=== PATIENT | male | born 1940 | race Caucasian/White ===

== ENCOUNTER 2018-02-08 06:44 | Observation (INO) ==
--- NOTE | 2018-02-08 07:26 | Anesthesia Evaluation PreOp ---
Date of Encounter: 02/08/18 Time of Encounter: 07:23 - Past History Planned Operation: Pleuroscopy Cardiac History: HTN, Hyperlipidemia, Cardiac Stent (stent x 1 in 2011, last dose of plavix on 01/31/2018) Pulmonary History: SABINA Dx (uses CPAP) PERIOPERATIVE TECH History: Denies Any Significant HX Other Medical History: Diabetes Type II Anesthesia History: No Prior Anesthetic Complications, Past Anesthesia Alcohol Use: rarely Drug use: none Medications and Allergies Aspirin Enteric Coated [Aspirin EC] 81 mg PO DAILY 11/07/15 [History] Clopidogrel [Plavix] 75 mg PO DAILY 11/07/15 [History] Enalapril Maleate [Vasotec] 20 mg PO BID 11/07/15 [History] Isosorbide MONOnitrate (24 HR) [Imdur] 30 mg PO DAILY 11/07/15 [History] Nitroglycerin [Nitrostat] 0.4 mg SL Q5M PRN 11/07/15 [History] [place]-3/Dha/Epa/Fish Oil [Fish Oil Dr 500 mg Softgel] 1,000 mg PO BIDWM [History] Simvastatin [Zocor] 20 mg PO HS 11/07/15 [History] SitaGLIPtin [Januvia] 100 mg PO DAILY 11/07/15 [History] Tamsulosin [Flomax] 0.4 mg PO DAILY 11/07/15 [History] glipiZIDE [Glucotrol] 5 mg PO BIDWM 11/07/15 [History] Ergocalciferol (VITAMIN D2) [Vitamin D2] 1,000 unit PO DAILY 05/04/16 [History] Multivitamin [Multivitamins] 1 each PO DAILY 05/04/16 [History] amLODIPine [Norvasc] 10 mg PO DAILY 05/04/16 [History] Metformin HCl [Metformin HCl ER] 1,000 mg PO BID 08/10/16 [History] Carvedilol [Coreg] 25 mg PO BID 01/10/17 [History] 3 Allergy/AdvReac Type Severity Reaction Status Date / Time Penicillins Allergy Anaphylaxis Verified 01/10/17 13:18 metoprolol AdvReac Itching Verified 01/10/17 13:18 - Meds/Allergy Pre-op Review Medications Reviewed: Yes Allergies Reviewed: Yes Beta Blockers on Current Med List: Yes If Beta Blockers taken, Date/Time (Last Dose taken): 02/07/2018 at 2100 Anesthesia Results - Labs Laboratory Tests 11/08/17 11/08/17 08:02 08:02 WBC 4.9 Hgb 15.6 Hct 48.2 Plt Count 203 Sodium 142 Potassium 4.1 BUN 19 Creatinine 0.93 - Imaging EKG: report reviewed (11/07/2015 SINUS RHYTHM) Chest x-ray: report reviewed (02/03/2018 Chest X-Ray IMPRESSION: Persistent right -sided pleural effusion. Otherwise, stable chest), other (01/17/[address] IMPRESSION: Increased right-sided pleural effusion with increased right lung consolidation. Pleural implants are now seen on the right.) Additional studies: 05/04/2016 LEFT HEART CATH Indications: Shortness of breath, Fatigue Impressions: Single vessel coronary artery disease. The left ventricle is normal and has normal contractility EF 60% Stent placed from a prior procedure in the Mid LAD is patent. Recommendations: Optimal medical therapy of patient's disease. Aggressive risk factor modification. 11/08/2015 Stress Impression: Perfusion imaging was negative for ischemia or infarct. Low level exercise ECG was negative for ischemia. Hypertensive throughout testing. Gated EF = 65%. Anesthesia Exam O2 Sat Height 1.75 m Height 1.75 m Height 1.75 m Weight 111.584 kg Weight 111.584 kg Weight 111.584 kg O2 Sat by Pulse Oximetry 94 Vital Signs Temp Pulse Resp BP Pulse Ox 98.7 F 69 18 153/87 94 02/08/18 07:17 02/08/18 07:17 02/08/18 07:17 02/08/18 07:17 02/08/18 07:17 Blood Glucose* 133 Height: 5'9'' Weight: 246 lbs NPO (# of Hours): 8 Pain Scale: 0 Pain Scale Used: Numeric (1 - 10) - HEENT Pupil (Motor): EOMI Mallampati: II Teeth: Normal Oral Opening: Greater than 3 - PERIOPERATIVE TECH LOC: Oriented PERIOPERATIVE TECH Motor: Normal RUE, Normal LUE, Normal RLE, Normal LLE, Normal Face PERIOPERATIVE TECH Sensory: Normal: RUE, LUE, RLE, LLE, Face - Cardiac Rhythm: Regular Murmur: None - Pulmonary Breath Sounds: bilateral Clear (decresed BS right) Respiratory Effort: Symmetrical Anesthesia Assess/Plan ASA Score: 3 Modified C[place]lle Scale for Level of Consciousness: Cooperative, oriented, and tranquil Anesthetic Plan: MAC Monitoring Plan: Standard Monitors
--- NOTE | 2018-02-08 07:37 | History & Physical Report ---
Date of Encounter: 02/08/18 Time of Encounter: 07:25 24 Hour HP Update - Instructions Instructions: If the History and Physical is less than 30 days old and was completed prior to A.M. admission and or procedure and has NOT been updated on calendar day of procedure please complete this update prior to performing procedure. - Update Patient reports changes in Medical Condition: No Changes in examination, assessment, or condition: No Changes in Medication: Yes Preop tests/diagnostics Reviewed: Yes Surgery Remains Indicated: Yes Consent for Planned Operative Procedure(s) Verified: Yes
[2018-02-08] MEDS ORDERED: Lidocaine -MPF 2% 2 ML VIAL ONE ×2 (08:21→08:39)
[2018-02-08] MEDS ORDERED: *HR* Propofol 200 MG/20 ML VIAL IVP ONE (08:21)
[2018-02-08] MEDS ORDERED: *HR* FentaNYL (PF) 100 MCG/2 ML VIAL ONE (08:21)
--- NOTE | 2018-02-08 10:02 | Anesthesia Evaluation Post Op ---
Date of Encounter: 02/08/18 Time of Encounter: 10:01 - Vital Signs Vital Signs: Vital Signs Temperature 98.7 F 02/08/18 07:17 Pulse Rate 69 02/08/18 07:17 Respiratory Rate 18 02/08/18 07:17 Blood Pressure 153/87 02/08/18 07:17 O2 Sat by Pulse Oximetry 94 02/08/18 07:17 Temperature 98 F 02/08/18 09:58 Pulse Rate 69 02/08/18 09:58 Respiratory Rate 18 02/08/18 09:58 Blood Pressure 159/91 02/08/18 09:58 O2 Sat by Pulse Oximetry 96 02/08/18 09:58 - Lungs Lungs: Clear Ascult./Percussion (right lung diminished at baseline) - Airway Airway: Non-obstructed - Cardiovascular Regular Rate - Mental Status Mental Status: Alert & Oriented, Answers Appropriately - Pain Pain Scale: 0 Pain Scale used: Numeric (1 - 10) - Nausea Vomiting Nausea Vomiting: Not Present - Hydration Hydration: Tolerates oral liquids - Discharge PostOp Status: Transfer Patient to floor
--- NOTE | 2018-02-08 13:09 | Pulmonology Consult Note ---
<ElijahreymundoPerla Grant - Last Filed: 02/08/18 14:33> Date of Encounter: 02/08/18 Medications and Allergies Aspirin Enteric Coated [Aspirin EC] 81 mg PO DAILY 11/07/15 [History] Clopidogrel [Plavix] 75 mg PO DAILY 11/07/15 [History] Enalapril Maleate [Vasotec] 40 mg PO DAILY 11/07/15 [History] Isosorbide MONOnitrate (24 HR) [Imdur] 30 mg PO DAILY 11/07/15 [History] Nitroglycerin [Nitrostat] 0.4 mg SL Q5M PRN 11/07/15 [History] [place]-3/Dha/Epa/Fish Oil [Fish Oil Dr 500 mg Softgel] 1,000 mg PO BID 11/07/15 [ History] Simvastatin [Zocor] 10 mg PO HS 11/07/15 [History] Tamsulosin [Flomax] 0.4 mg PO DAILY 11/07/15 [History] glipiZIDE [Glucotrol] 5 mg PO BIDWM 11/07/15 [History] Multivitamin [Multivitamins] 1 each PO DAILY 05/04/16 [History] Metformin HCl [Metformin HCl ER] 1,000 mg PO BID 08/10/16 [History] Carvedilol [Coreg] 25 mg PO BID 01/10/17 [History] Cholecalciferol (Vitamin D3) [Vitamin D3] 5,000 unit PO DAILY 02/08/18 [History] 3 Allergy/AdvReac Type Severity Reaction Status Date / Time Penicillins Allergy Anaphylaxis Verified 01/10/17 13:18 metoprolol AdvReac Itching Verified 01/10/17 13:18 All Systems: The remainder of the systems were reviewed and are negative Physical Examination Vital Signs: Vital Signs, Last 4 Hours Temp Pulse Resp BP Pulse Ox 02/08/18 12:24 98.2 F 82 16 156/78 94 02/08/18 10:58 98 F 74 16 155/81 94 Results - Laboratory Findings Abnormal lab findings: Abnormal lab results POC Glucose 133 mg/dL (70-99) H 02/08/18 07:15 - Clinical Findings Intake & Output: Intake & Output 02/07/18 02/08/18 02/08/18 23:59 07:59 15:59 Intake Total 600 / 600 Output Total 160 / 160 Balance 440 / 440 Weight 111.584 kg Consult Discharge Plan - Plan Referrals: Zain Barros MD [Primary Care Provider] - - Attending Attestation I examined this patient and my medical decision-making was reviewed with the Resident Physician. I agree with the documented findings, disposition and treatment plan as described except to the extent set forth below. Patient seen and examined. Labs, radiology, chart personally reviewed. Agree with resident's history and physical, assessment, plan with following comments: DIRECTOR OF FOOD AND BEVERAGE SERVICES: Patient follows commands, Pulmonary: Acceptable oxygenation and ventilation. Patient had pleuroscopy today for recurrent pleural effusion. The patient has abnormal PET scan as outpatient and previously his PET scan was normal. This is highly suspicious for malignancy and suspect mesothelioma. Patient will be and observation and will follow-up on the biopsy result and will consider oncology consultation. Most likely patient will be discharged home tomorrow. I have discussed this with the family and the patient. Cardiovascular: stable <Emile Davis - Last Filed: 02/08/18 15:43> Date of Encounter: 02/08/18 Time of Encounter: 14:00 Assessment and Plan (1) Pleural effusion Current Visit: Yes Status: Acute -Patient has a history of recurrent pleural effusion. his last admission was on January 24 for pleural effusion and underwent thoracentesis. - -Patient had a pleuroscopy procedure this morning for his recurrent pleural effusion. He tolerated the procedure very well. Findings are suspicious for malignancy and mesothelioma. -Patient currently onsuction, will transition to water seal and get a CXR. -Continue to monitor. (2) SABINA (obstructive sleep apnea) Current Visit: Yes Status: Acute -Patient has a history of obstructive sleep apnea. Patient recently underwent for overnight titration polysomnography, and the recommendations of the study was CPAP, - continue to monitor History of Present Illness Consult date: 02/08/18 Chief complaint: recurrent pleural effusion History of present illness: Demetria is a 77-year-old male with a past medical history of recurrent pleural effusion, hypertension, diabetes, acute coronary syndrome, hyperlipidemia and obesity who was seen by pulmonology for pleuroscopy procedure. He was recently in the hospital on January 24 for right-sided pleural effusion and underwent thoracentesis. This morning he underwent pleuroscopy procedure and the findings were highly suspicious for malignancy and suspect mesothelioma. Past Med Surg Social Fam HX - Past Medical History Medical history: cancer, coronary artery disease, dementia, diabetes, hyperlipidemia, hypertension, kidney stones, myocardial infarction, other Additional medical history: BPH, dyslipedemia, skin ca, hypokalemia, kidney stones Psychiatric history: no psych history - Past Surgical History Surgical History: angioplasty/stent, cancer surgery, cholecystectomy Additional surgical history: skin cancer, Mohs procedure, thoracentesis, heart stent, thorancetisis. pleurx cath - Social History Smoking Status: Never smoker Smokeless Tobacco Status: No Alcohol use: rarely Drug use: none - Family History Mother Living Status: Hx Family Cardiac Disorders: Yes Hx Family Endocrine Disorder: Yes All Systems: The remainder of the systems were reviewed and are negative Physical Examination Vital Signs: Vital Signs, Last 4 Hours Temp Pulse Resp BP Pulse Ox 02/08/18 12:24 98.2 F 82 16 156/78 94 02/08/18 10:58 98 F 74 16 155/81 94 02/08/18 10:28 97.5 F L 69 18 152/85 94 02/08/18 09:58 98 F 69 18 159/91 96 02/08/18 09:43 98.3 F 67 18 144/87 95 02/08/18 09:28 98 F 67 16 135/82 94 General appearance: no acute distress, asleep Auscultation: bilateral: clear Cardiovascular: regular rate and rhythm Extremities: no cyanosis, no edema, no clubbing Results - Clinical Findings Intake & Output: Intake & Output 02/07/18 02/08/18 02/08/18 23:59 07:59 15:59 Weight 111.584 kg
[2018-02-08] MEDS ORDERED: Naloxone 0.4 MG/ML INJ IVP PRN (13:11)
[2018-02-08] MEDS ORDERED: *HR* HYDROcodone/Acet 5/325 mg TABLET PO PRN (13:11)
[2018-02-08] MEDS ORDERED: Acetaminophen 325 MG TABLET PO PRN (13:11)
[2018-02-08] MEDS ORDERED: Nitroglycerin 0.4 MG TAB.SUBL SL PRN (13:15)
[2018-02-08] MEDS ORDERED: Dextrose Gel 15 GM/37.5 ML TUBE PO PRN ×2 (13:19)
[2018-02-08] MEDS ORDERED: *HR* Dextrose 50 % in Water (Syg) 50 ML SYRINGE IVP PRN (13:19)
[2018-02-08] MEDS ORDERED: D5% in Water 1,000 ML IVC PRN (13:19)
--- NOTE | 2018-02-08 15:06 | Internal Med History&Physical ---
Date of Encounter: 02/08/18 Time of Encounter: 12:00 Internal Medicine - H&P: HPI Chief complaint: Pleuroscopy for recurrent pleural effusion Admitted From: Intrahospital Transfer Plans for Post Hospital Care: Home History of present illness: Mr. Escoto is a 77 year old male past medical history of coronary disease with stent placement dementia and diabetes hyperlipidemia hypertension. Patient has a history of recurrent pleural effusions. According to patient and family he has had thoracentesis in the past as well as Pleurx catheters however the pleural effusions have returned. 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 Patient underwent fluoroscopy today with chest tube placed-which is currently on suction. Currently he does not appear to be in any respiratory distress he denies any chest pain. There does not appear to be any crepitus around chest tube insertion site. Chest x-ray completed postprocedure which did show improvement right-sided chest tube right pleural effusion will be admitted for observation Past Med Surg Social Fam HX - Past Medical History Medical history: cancer, coronary artery disease, dementia, diabetes, hyperlipidemia, hypertension, kidney stones, myocardial infarction, other Additional medical history: BPH, dyslipedemia, skin ca, hypokalemia, kidney stones Psychiatric history: no psych history - Past Surgical History Surgical History: angioplasty/stent, cancer surgery, cholecystectomy Additional surgical history: skin cancer, Mohs procedure, thoracentesis, heart stent, thorancetisis. pleurx cath - Social History Smoking Status: Never smoker Smokeless Tobacco Status: No Alcohol use: rarely Drug use: none - Family History Mother Living Status: Hx Family Cardiac Disorders: Yes Hx Family Endocrine Disorder: Yes Internal Medicine - H&P: Meds Aspirin Enteric Coated [Aspirin EC] 81 mg PO DAILY 11/07/15 [History] Clopidogrel [Plavix] 75 mg PO DAILY 11/07/15 [History] Enalapril Maleate [Vasotec] 40 mg PO DAILY 11/07/15 [History] Isosorbide MONOnitrate (24 HR) [Imdur] 30 mg PO DAILY 11/07/15 [History] Nitroglycerin [Nitrostat] 0.4 mg SL Q5M PRN 11/07/15 [History] [place]-3/Dha/Epa/Fish Oil [Fish Oil Dr 500 mg Softgel] 1,000 mg PO BID 11/07/15 [ History] Simvastatin [Zocor] 10 mg PO HS 11/07/15 [History] Tamsulosin [Flomax] 0.4 mg PO DAILY 11/07/15 [History] glipiZIDE [Glucotrol] 5 mg PO BIDWM 11/07/15 [History] Multivitamin [Multivitamins] 1 each PO DAILY 05/04/16 [History] Metformin HCl [Metformin HCl ER] 1,000 mg PO BID 08/10/16 [History] Carvedilol [Coreg] 25 mg PO BID 01/10/17 [History] Cholecalciferol (Vitamin D3) [Vitamin D3] 5,000 unit PO DAILY 02/08/18 [History] 3 Allergy/AdvReac Type Severity Reaction Status Date / Time Penicillins Allergy Anaphylaxis Verified 01/10/17 13:18 metoprolol AdvReac Itching Verified 01/10/17 13:18 All Systems PM: A 10-system review of systems was performed and is negative for pertinent findings except as documented above in the HPI. - Constitutional Constitutional: no chills, no fever(s), no night sweats - EENT Eyes: no change in vision, no discharge, no pain, no photophobia Ears: no ear discharge, no ear pain, no tinnitus Nose, mouth and throat: no dysphagia, no nasal discharge, no neck pain, no sore throat - Cardiovascular Cardiovascular ROS IM: no chest pain, no diaphoresis, no dyspnea, no lightheadedness, no palpitations, no syncope - Respiratory Respiratory: dyspnea - Gastrointestinal Gastrointestinal: no abdominal pain, no diarrhea, no hematemesis, no hematochezia, no melena, no nausea, no vomiting - Musculoskeletal Musculoskeletal ROS IM: no numbness, no tingling - Integumentary Integumentary IM: no rash, no unusual bruising - Neurological Neurological ROS: no confusion, no convulsions, no focal weakness, no numbness, no tingling, no tremor(s) - Hematologic/Lymphatic Hematologic/Lymphatic: no easy bruising - Constitutional Vitals: Temp Pulse Resp BP Pulse Ox 98.2 F 82 16 156/78 94 02/08/18 12:24 02/08/18 12:24 02/08/18 12:24 02/08/18 12:24 02/08/18 12:24 General appearance: Present: A&O X 3 Exam: see below - Head Head exam: Present: atraumatic, normocephalic - Eye Eye exam: Present: PERRL, conjuntiva pink, sclera anicteric Pupils: Present: PERRL - Neck Neck exam general surgery: Present: supple, trachea midline. Absent: lymphadenopathy - Respiratory Respiratory exam: Present: decreased breath sounds, CTAB. Absent: accessory muscle use, rales, rhonchi, wheezes Additional comments: Decreased breath sounds to right lower lobe - Cardiovascular Cardiovascular exam: Present: RRR, +S1, +S2. Absent: diastolic murmur, gallop, rubs, systolic murmur - GI/Abdominal GI/Abdominal exam: Present: normal bowel sounds, soft, no peritoneal signs. Absent: distended, tenderness - Extremities Exam Extremities exam: Present: warm, radial pulses palpable and symmetrical. Absent : calf tenderness, cyanotic, pedal edema - Neurological Exam Neurological exam: Present: CN II-XII intact, oriented X3, no focal deficits. Absent: pronater drift, facial droop, speech deficit - Skin Skin exam: Present: dry, intact Internal Med - H&P Results - Impressions ITS Impressions Chest X-Ray 02/08/18 09:42 IMPRESSION: 1. Interval placement of right-sided chest tube, with interval improvement in right pleural effusion and right lung base pulmonary opacities. There is residual round masslike density within right lower lobe measuring 37 x 31 mm. Continued attention on follow-up examination is recommended to exclude neoplasm. 2. New left lower lobe pulmonary opacity may represent combination of atelectasis, pneumonia, and/or aspiration. Recommend radiographic follow-up to complete resolution. 3. No convincing evidence of pneumothorax. D/ / Lang Tucker MD / Lang Tucker MD Interpreting Provider: Lang Tucker MD - Diagnostic Studies Other Images Additional comments: Chest X-Ray 02/08/18 09:42 IMPRESSION: 1. Interval placement of right-sided chest tube, with interval improvement in right pleural effusion and right lung base pulmonary opacities. There is residual round masslike density within right lower lobe measuring 37 x 31 mm. Continued attention on follow-up examination is recommended to exclude neoplasm. 2. New left lower lobe pulmonary opacity may represent combination of atelectasis, pneumonia, and/or aspiration. Recommend radiographic follow-up to complete resolution. 3. No convincing evidence of pneumothorax. D/ / Lang Tucker MD / Lang Tucker MD Interpreting Provider: Lang Tucker MD - Assessment and plan (1) Pleural effusion Current Visit: Yes Status: Acute Assessment and plan: -Patient has a history of recurrent pleural effusion he had a recent PET scan which was concerning for malignancy pulmonology suggesting pleuroscopy. Patient underwent colonoscopy today per Dr. Velasquez findings are suspicious for malignancy and mesothelioma -He does have a right chest tube is currently suction managed per pulmonary services -Post procedure chest x-ray does show improvement in right pleural effusion and right lung base pulmonary opacities. It also reveals a new left lower lobe pulmonary pace and he may represent combination of atelectasis pneumonia and/or aspiration follow-up with chest x-ray. We will hold off on antibiotics at this time patient is afebrile sats are stable no Leukocytosis continue to monitor closely (2) SABINA (obstructive sleep apnea) Current Visit: Yes Status: Acute Assessment and plan: -Vision has a history of obstructive sleep apnea We will continue with CPAP (3) Coronary artery disease Current Visit: No Status: Chronic Assessment and plan: Patient does have a history of coronary artery disease with stent placement mid LAD in 2013-he did undergo a cardiac catheterization and May 2016 with a patent stent. Single-vessel coronary disease Continue with aspirin and Plavix beta kimber statin Continuous cardiac monitoring Nitroglycerin as needed Qualifiers: Coronary Disease-Associated Artery/Lesion type: [place] artery [place] vs. transplanted heart: [place] heart Associated angina: with stable angina Qualified Code(s): I25.119 - Atherosclerotic heart disease of [place] coronary artery with unspecified angina pectoris (4) Diabetes Current Visit: No Status: Chronic Assessment and plan: Last hemoglobin A1c 6.4 on 11/08/2017-we will hold oral medications for now. Accu-Cheks before meals at bedtime with sliding scale insulin Diabetic diet Qualifiers: Diabetes mellitus type: type 2 Diabetes mellitus jail insulin use: unspecified cpas insulin use status Diabetes mellitus complication status : with unspecified complications Qualified Code(s): E11.8 - Type 2 diabetes mellitus with unspecified complications (5) HTN (hypertension) Current Visit: No Status: Chronic Assessment and plan: Patient did not take medication today we will resume home medicines Qualifiers: Hypertension type: essential hypertension Qualified Code(s): I10 - Essential (primary) hypertension (6) DVT prophylaxis Current Visit: Yes Status: Acute Assessment and plan: SCDs - Time Spent With Patient Total time spent is greater than 50% in coordination of care (as documented) at patient's floor/unit and/or counseling patient:
[2018-02-08] MEDS: Insulin LISPRO 300 UNITS/3 ML VIAL SQ SCH (16:46)
[2018-02-08] MEDS ORDERED: Aspirin Enteric Coated 81 MG Tablet PO SCH (17:00)
[2018-02-08] MEDS ORDERED: Multivit/Ca/Min/Fe/FA 1 TAB TABLET PO SCH (17:00)
[2018-02-08] MEDS ORDERED: NON-FORMULARY MEDICATION 1 EACH EACH (Omega-3/Dha/Epa/Fish Oil [Fish Oil Dr 500 Mg Softgel PO SCH (21:00)
[2018-02-08] MEDS ORDERED: Insulin LISPRO 300 UNITS/3 ML VIAL SQ SCH (21:00)
[2018-02-08] MEDS ORDERED: Cholecalciferol (D-3) 1,000 UNIT TABLET PO SCH (21:00)
[2018-02-08] MEDS ORDERED: Isosorbide MONOnitrate (24 HR) 30 MG TAB.ER.24H PO SCH (21:00)
[2018-02-08] MEDS ORDERED: Lisinopril 20 MG TABLET PO SCH (21:00)
[2018-02-09 03:38] LABS: Basophils # 0.1 K/mcL (0.0-0.2); Basophils % 0.7 %; Eosinophils # 0.1 K/mcL (0.0-0.6); Eosinophils % 1.6 %; Hematocrit 45.6 % (37.5-50.1); Immature Granulocytes % 0.3 % (0-4); Lymphocytes # 1.4 K/mcL (0.6-4.6); Mean Corpuscular HGB Conc 32.9 g/dL (31.6-35.5); Mean Corpuscular Hemoglobin 28.8 pg (28.0-33.3); Mean Corpuscular Volume 87.5 fL (83.0-100.0); Mean Platelet Volume 9.8 fL (9.4-12.4); Monocytes # 0.6 K/mcL (0.0-1.3); Monocytes % 8.8 %; Neutrophils # 4.8 K/mcL (1.6-8.9); Platelet Count 193 K/mcL (140-400); Red Blood Count 5.21 M/mcL (4.19-5.50); Red Cell Distribution Width 13.7 % (11.5-14.5); Segmented Neutrophils % 68.6 %
[2018-02-09 04:01] LABS: BUN/Creatinine Ratio 16 (6-26); Blood Urea Nitrogen 12 mg/dL (8-23); Calcium 9.1 mg/dL (8.6-10.3); Carbon Dioxide 24 mEq/L (23-29); Chloride 104 mEq/L (98-107); Glucose 145 mg/dL (70-105); Osmolality,Calculated 288 (280-300); Potassium 4.1 mEq/L (3.5-5.1); Sodium 138 mEq/L (136-145); eGFR For Non-African Americans > 60 (> 60)
[2018-02-09 07:18] VITALS: BP 132/82
[2018-02-09] MEDS: Insulin LISPRO 300 UNITS/3 ML VIAL SQ SCH (08:38)
--- NOTE | 2018-02-09 09:23 | Discharge Summary ---
- NOTES TO OUTPATIENT PROVIDER Notes to Outpatient Provider: follow up with pulmonology clinic. follow up biopsy results from pleuroscopy Orders not resulted at time of discharge: Pending orders 02/08/18 10:01 Cytology [PTH] Routine Surgical Pathology [PTH] Routine Date of Encounter: 02/09/18 Time of Encounter: 09:21 - Discharge Diagnosis (1) Pleural effusion Priority: Primary Status: Acute (2) HTN (hypertension) Priority: Secondary Status: Chronic Qualifiers: Hypertension type: essential hypertension Qualified Code(s): I10 - Essential (primary) hypertension (3) Diabetes Priority: Secondary Status: Chronic Qualifiers: Diabetes mellitus type: type 2 Diabetes mellitus roasterman insulin use: unspecified roasterman insulin use status Diabetes mellitus complication status : with unspecified complications Qualified Code(s): E11.8 - Type 2 diabetes mellitus with unspecified complications (4) Coronary artery disease Priority: Secondary Status: Chronic Qualifiers: Coronary Disease-Associated Artery/Lesion type: [place] artery [place] vs. transplanted heart: [place] heart Associated angina: with stable angina Qualified Code(s): I25.119 - Atherosclerotic heart disease of [place] coronary artery with unspecified angina pectoris (5) SABINA (obstructive sleep apnea) Priority: Secondary Status: Acute (6) DVT prophylaxis Priority: Secondary Status: Acute (7) Obesity (BMI 35.0-39.9 without comorbidity) Priority: Secondary Status: Acute Hospital course: Mr. Escoto is a 77 year old male with medical history of coronary disease with stent placement dementia and diabetes hyperlipidemia hypertension. Patient has a history of recurrent pleural effusions. According to patient and family he has had thoracentesis in the past as well as Pleurx catheters however the pleural effusions have returned. 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 He was seen by his patient registration specialist who recommended pleuroscopy. Patient underwent fluoroscopy on 02/08 and tolerated the procedure well. on 02/09 he was reevaluated by the pulmonology team it was recommended that he is stable for discharge and for follow up with Dr. Velasquez as OP. he understands that he will need close follow up with pulmonology team in regards to the biopsy reports. pulmonology will consider oncology consultation based on biopsy results as OP. was told to provide appointments with pulmonology and PCP prior to discharge CXR 02/09- IMPRESSION: 1. Right chest tube in stable position. No discrete pneumothorax identified. 2. Improved aeration of the bilateral bases with minimal persistent atelectasis and trace effusions. - Time Spent with Patient Total time spent providing and/or coordinating discharge services: Less than 30 minutes - Discharge Medications Home Medications: Aspirin Enteric Coated [Aspirin EC] 81 mg PO 169911/07/15 [History] Clopidogrel [Plavix] 75 mg PO 169911/07/15 [History] Enalapril Maleate [Vasotec] 40 mg PO 209911/07/15 [History] Isosorbide MONOnitrate (24 HR) [Imdur] 30 mg PO 209911/07/15 [History] Nitroglycerin [Nitrostat] 0.4 mg SL Q5M PRN 11/07/15 [History] Simvastatin [Zocor] 10 mg PO 209911/07/15 [History] glipiZIDE [Glucotrol] 5 mg PO 0800,1700 11/07/15 [History] Multivitamin [Multivitamins] 1 cap PO 169905/04/16 [History] Metformin HCl [Metformin HCl ER] 1,000 mg PO 0900,209908/10/16 [History] Carvedilol [Coreg] 25 mg PO 0900,209901/10/17 [History] Cholecalciferol (D-3) [Vitamin D] 5,000 unit PO 209902/09/18 [History] [place]-3/Dha/Epa/Fish Oil [Fish Oil 1,000 mg Softgel] 1 cap PO 0900,2099 [History] Tamsulosin [Flomax] 0.4 mg PO 169902/09/18 [History] Allergies/Adverse Reactions: 3 Allergy/AdvReac Type Severity Reaction Status Date / Time Penicillins Allergy Anaphylaxis Verified 02/09/18 08:37 metoprolol AdvReac Itching Verified 02/09/18 08:37 Date of admission: 02/08/18 11:48 Primary care physician: Zain Barros MD Consults: 02/08/18 14:03 Consult to Pulmonology [CONS] Routine Consulting Provider: [facility] [place] Reason for Consult: s/p pleuroscopy and pleurX catheter insertion Call Completed: Yes - Constitutional Vitals: Temp Pulse Resp BP Pulse Ox 98.1 F 72 18 132/82 95 02/09/18 07:17 02/09/18 07:17 02/09/18 07:17 02/09/18 07:17 02/09/18 08:20 General appearance: Present: A&O X 3 Exam: General: Patient is alert, oriented, no acute distress, obese Head: atraumatic, normocephalic, Eye: normal appearance, PERRL, no scleral icterus, no conjunctival injection ENT: mucous membranes moist, normal external ear exam Neck: normal inspection, trachea midline, full ROM, no carotid bruits Chest: normal inspection, symmetric chest rise Respiratory: Good respiratory effort. Bilateral breath sounds are decreased secondary to body habitus, chest tube in the right posterior lung field. Has crackles in the right posterior lung field Cardiovascular: Distant heart sounds secondary to body habitus, Regular rate and rhythm. s1 and s2 No clicks, rubs, gallops, or murmors. Abdomen: Bowel sounds present normoactive x-4 quadrants. Abdomen is soft, nondistended. no Epigastric tenderness. No guarding or rebound. No organomegaly noted, obese musculoskeletal: Spontaneously moving all extremities. no edema, no calf tenderness Skin: warm, dry, intact. Neuro: Alert and oriented x4. Sensation light touch intact. Cranial nerves 2- 12 is intact. Not aphasic, rapid hand movements intact, [id number] intact, Psych: Patient's affect is normal - Patient Status Disposition: Home, Self-Care Condition: Fair Functional capacity at discharge: independent ambulation Overall status at discharge: patient is progressing back to baseline - Discharge Instructions Follow Up With: Zain Barros MD [Primary Care Provider] - - Diet and Activity Activity: increase activity as tolerated Diet: advance to your usual diet
--- NOTE | 2018-02-09 12:34 | Pulmonology Progress Note ---
<Perla Crowder - Last Filed: 02/09/18 13:28> Date of Encounter: 02/09/18 Objective PUL Vital signs: Last Vital Signs Temp 98.1 F 02/09/18 07:17 Pulse 72 02/09/18 07:17 Resp 18 02/09/18 07:17 BP 132/82 02/09/18 07:17 Pulse Ox 95 02/09/18 08:20 Results - Laboratory Findings CBC and BMP: 02/09/18 03:16 02/09/18 03:16 Abnormal lab findings: Abnormal lab results Glucose 145 mg/dL (70-105) H 02/09/18 03:16 POC Glucose 102 mg/dL (70-99) H 02/08/18 22:01 - Clinical Findings Intake & Output: Intake & Output 02/08/18 02/09/18 02/09/18 23:59 07:59 15:59 Intake Total 360 / 360 Output Total 580 / 580 250 / 250 Balance -580 / -580 -250 / -250 360 / 360 Weight 110.2 kg Consult Discharge Plan - Plan Instructions: Chest Tubes (DC) Referrals: Perla Crowder MD [Partnered Physician] - 02/10/18 8:00 am (Please follow up as schedule....) Zain Barros MD [Primary Care Provider] - 02/16/18 2:15 pm (Please follow up as schedule...) - Attending Attestation I examined this patient and my medical decision-making was reviewed with the Resident Physician. I agree with the documented findings, disposition and treatment plan as described except to the extent set forth below. Patient seen and examined. Labs, radiology, chart personally reviewed. Agree with resident's history and physical, assessment, plan with following comments: [employer]: Patient follows commands, Pulmonary: Acceptable oxygenation and ventilation. Patient is breathing better and reviewed this x-ray with improvement and change dressing with patient to follow-up as outpatient in 7-10 days. Resume his aspirin and Plavix. <Emile Davis - Last Filed: 02/09/18 14:22> Date of Encounter: 02/09/18 Time of Encounter: 11:00 Assessment and Plan (1) Pleural effusion Status: Acute - Patient was admitted yesterday for recurrent pleural effusion, underwent pleuroscopy ,had left chest tube placed, with bare minimal drainage overnight. Patient's repeat x-ray looks pretty unremarkable with no evidence of pneumothorax. He is stable to be discharged from the hospital and has been recommended to follow-up with pulmonology as an outpatient in 7-10 days, in order to discuss the surgical biopsy and pleural cytology results. Patient has also been advised to resume his aspirin and Plavix. (2) SABINA (obstructive sleep apnea) Status: Acute -Patient has a history of obstructive sleep apnea. Patient recently underwent for overnight titration polysomnography, and the recommendations of the study was CPAP, -Continue to follow-up with pulmonology for further management of his SABINA. Subjective Principal diagnosis: pleural effusion Interval history: No acute events overnight. Patient's a right chest tube is in stable position with no evidence of discrete pneumothorax on the chest x-ray. He is hemodynamically stable to be discharged and follow-up with pulmonology as an outpatient in 7-10 days. Patient's surgical specimen and pleural cytological studies are pending. Objective PUL Vital signs: Last Vital Signs Temp 98.1 F 02/09/18 07:17 Pulse 72 02/09/18 07:17 Resp 18 02/09/18 07:17 BP 132/82 02/09/18 07:17 Pulse Ox 95 02/09/18 08:20 General appearance: no acute distress Effort: normal Auscultation: bilateral: clear Cardiovascular: regular rate and rhythm Gastrointestinal: soft, non-tender, non-distended Extremities: no cyanosis, no edema, no clubbing Results - Laboratory Findings CBC and BMP: 02/09/18 03:16 02/09/18 03:16 Abnormal lab findings: Abnormal lab results Glucose 145 mg/dL (70-105) H 02/09/18 03:16 POC Glucose 102 mg/dL (70-99) H 02/08/18 22:01 - Clinical Findings Intake & Output: Intake & Output 02/08/18 02/09/18 02/09/18 23:59 07:59 15:59 Intake Total 360 / 360 Output Total 580 / 580 250 / 250 Balance -580 / -580 -250 / -250 360 / 360 Weight 110.2 kg
== END 2018-02-09 11:23 | disposition home or self-care (01) ==
LOC: SAMDAY 06:44 → 2ANU 11:48 → INTOOBSV 11:48
PROVIDERS: ADMIT Internal Medicine; ATTEND Internal Medicine

== ENCOUNTER 2020-10-17 14:21 | Observation (INO) ==
[2020-10-17] MEDS ORDERED: Isovue-370 500 ML BOTTLE IVP ONE (14:39)
[2020-10-17 15:21] LABS: Basophils % 0.7 %
[2020-10-17 15:23] LABS: Eosinophils # 0.1 K/mcL (0.0-0.6); Eosinophils % 1.5 %; Hematocrit 42.7 % (37.5-50.1); Hemoglobin 13.9 g/dL (12.9-16.9); Immature Granulocytes % 0.5 % (0-4); Immature Platelets 3.9 % (1.1-6.1); Lymphocytes # 0.3 K/mcL (0.6-4.6); Lymphocytes % 4.6 %; Mean Corpuscular HGB Conc 32.6 g/dL (31.6-35.5); Mean Corpuscular Hemoglobin 29.3 pg (28.0-33.3); Mean Corpuscular Volume 90.1 fL (83.0-100.0); Monocytes # 0.8 K/mcL (0.0-1.3); Monocytes % 12.7 %; Neutrophils # 4.7 K/mcL (1.6-8.9); Platelet Count 133 K/mcL (140-400); Red Blood Count 4.74 M/mcL (4.19-5.50); Red Cell Distribution Width 13.4 % (11.5-14.5); White Blood Count 5.9 K/mcL (4.3-11.1)
[2020-10-17 15:26] LABS: Platelet Estimate Slight Decrease (Normal)
[2020-10-17 15:41] LABS: BUN/Creatinine Ratio 26 (6-26); Blood Urea Nitrogen 31 mg/dL (8-23); Calcium 9.2 mg/dL (8.6-10.3); Carbon Dioxide 28 mEq/L (23-29); Chloride 91 mEq/L (98-107); Glucose 148 mg/dL (70-105); Osmolality,Calculated 279 (280-300); Potassium 3.1 mEq/L (3.5-5.1); Sodium 130 mEq/L (136-145); eGFR For African Americans > 60 (> 60); eGFR For Non-African Americans 59 (> 60)
[2020-10-17 15:58] LABS: Troponin I 0.05 ng/mL (< 0.04)
[2020-10-17] MEDS ORDERED: Cefepime HCl 2,000 MG in D5% in Water (Mini-Bag+) 100 ML IVPB STA (18:21)
[2020-10-17] MEDS ORDERED: Naloxone 0.4 MG/ML INJ IVP PRN (20:53)
[2020-10-17] MEDS ORDERED: *HR* Dextrose 50 % in Water (Vial) 50 ML VIAL IVP PRN (20:53)
[2020-10-17] MEDS ORDERED: D5% in Water 1,000 ML IVC PRN (20:53)
[2020-10-17] MEDS ORDERED: Dextrose Gel 15 GM/37.5 ML TUBE PO PRN ×2 (20:53)
[2020-10-17] MEDS ORDERED: Potassium Chloride Elixir 20 MEQ/15 ML UDC PO ONE (22:44)
[2020-10-18 01:21] LABS: Bilirubin,Urine Negative (Negative); Blood,Urine Negative (Negative); Clarity,Urine Clear (Clear); Color,Urine Light-Yellow (Yellow); Glucose,Urine (UA) Normal (Normal); Ketones,Urine Negative (Negative); Leukocyte Esterase,Urine Negative (Negative); Nitrite,Urine Negative (Negative); Protein,Urine Trace mg/dL (Neg-Trace); Specific Gravity,Urine 1.024 (1.010-1.025); Urobilinogen,Urine Normal (Normal)
[2020-10-18 03:19] LABS: Basophils # 0.1 K/mcL (0.0-0.2); Basophils % 0.9 %; Eosinophils # 0.1 K/mcL (0.0-0.6); Eosinophils % 1.6 %; Hematocrit 40.5 % (37.5-50.1); Hemoglobin 13.2 g/dL (12.9-16.9); Immature Granulocytes % 0.5 % (0-4); Immature Platelets 2.6 % (1.1-6.1); Lymphocytes # 0.3 K/mcL (0.6-4.6); Lymphocytes % 5.4 %; Mean Corpuscular HGB Conc 32.6 g/dL (31.6-35.5); Mean Platelet Volume 9.4 fL (9.4-12.4); Monocytes # 0.7 K/mcL (0.0-1.3); Monocytes % 12.2 %; Neutrophils # 4.5 K/mcL (1.6-8.9); Platelet Count 142 K/mcL (140-400); Red Blood Count 4.55 M/mcL (4.19-5.50); Red Cell Distribution Width 13.3 % (11.5-14.5); Segmented Neutrophils % 79.4 %; White Blood Count 5.7 K/mcL (4.3-11.1)
[2020-10-18] MEDS: Ringers Solution, Lactated 1,000 ML IVC SCH ×2 (03:20→13:22)
[2020-10-18 03:42] LABS: Alanine Aminotransferase 12 Units/L (7-52); Albumin 3.4 g/dL (3.5-5.7); Albumin/Globulin Ratio 1.2 (1.1-2.2); Alkaline Phosphatase 38 Units/L (34-104); Aspartate Amino Transferase 10 Units/L (13-39); BUN/Creatinine Ratio 25 (6-26); Bilirubin,Total 0.9 mg/dL (0.3-1.0); Blood Urea Nitrogen 22 mg/dL (8-23); Calcium 8.9 mg/dL (8.6-10.3); Carbon Dioxide 29 mEq/L (23-29); Chloride 94 mEq/L (98-107); Globulin 2.8 g/dL (2.4-3.5); Glucose 170 mg/dL (70-105); Osmolality,Calculated 283 (280-300); Potassium 3.8 mEq/L (3.5-5.1); Sodium 133 mEq/L (136-145); Total Protein 6.2 g/dL (6.4-8.9); Troponin I 0.07 ng/mL (< 0.04); eGFR For African Americans > 60 (> 60); eGFR For Non-African Americans > 60 (> 60)
[2020-10-18] MEDS ORDERED: Aspirin 325 MG TABLET PO ONE (06:04)
[2020-10-18] MEDS ORDERED: 0.9 % Sodium Chloride 1,000 ML IVC SCH (06:15)
[2020-10-18] MEDS ORDERED: Perflutren Lipid Microsphere 1.3 ML in 0.9 % Sodium Chloride 8.7 ML IVP PRN (06:20)
[2020-10-18 07:22] VITALS: BP 146/86
[2020-10-18] MEDS ORDERED: Gadolinium Contrast Agent (WT Based) IV PRN (07:48)
[2020-10-18] MEDS: Insulin LISPRO 300 UNITS/3 ML VIAL SUBQ SCH ×2 (08:07→13:22)
[2020-10-18] MEDS ORDERED: Insulin LISPRO 300 UNITS/3 ML VIAL SUBQ SCH (21:00)
== END 2020-10-18 13:59 | disposition home or self-care (01) ==
LOC: 2ANU 14:21 → EMEROOARM 14:21 → 2ANU 20:13
PROVIDERS: ADMIT Internal Medicine; ATTEND Internal Medicine